=== PATIENT | female | born 1955 | race Caucasian/White ===

== ENCOUNTER 2019-04-28 14:15 | Outpatient (CLI) | payer BC ==
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
== END 2019-04-28 14:16 | disposition home or self-care (01) ==
LOC: DI 14:15
PROVIDERS: ATTEND Internal Medicine
DX: S93.334A Other dislocation of right foot, initial encounter (principal); R22.41 Localized swelling, mass and lump, right lower limb

== ENCOUNTER 2019-05-20 14:06 | Outpatient (CLI) | payer BC ==
--- NOTE | 2019-05-21 09:35 | CT Report ---
Reason: RT TOE SPRAIN Procedure Date: 05/20/2019 Accession Number: [id number] / [id number] Procedure: CT - LOWER EXTREMITY WO - RT CPT Code: Final Report FULL RESULT: EXAM: RIGHT FOOT CT WITHOUT CONTRAST EXAM DATE: 05/20/2019 03:08 PM. CLINICAL HISTORY: Dorsal midfoot pain after fall one month ago. COMPARISON: FOOT 3 VIEW RT 04/28/2019 2:34 PM. TECHNIQUE: Thin-section axial images were acquired of the foot without contrast. Post-processing: Coronal and sagittal reformats. Other: None. In accordance with CT protocol optimization, one or more of the following dose reduction techniques were utilized for this exam: automated exposure control, adjustment of mA and/or KV based on patient size, or use of iterative reconstructive technique. FINDINGS: No acute fracture or bone lesions. Tiny plantar calcaneal enthesophyte. Mild talonavicular joint osteoarthritis. Mild to moderate third TMT joint osteoarthritis. Mild fourth and fifth TMT joint osteoarthritis. Mild first MTP joint osteoarthritis. Moderate to severe osteoarthritis between the medial sesamoid and the first metatarsal. No subluxations. Musculature: Normal. No fatty atrophy. Other: No tendon entrapment. Subcutaneous tissues are unremarkable. IMPRESSION: 1. No acute fracture or dislocation. 2. 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 [facility]
== END 2019-05-20 14:07 | disposition home or self-care (01) ==
LOC: DI 14:06
PROVIDERS: ATTEND Internal Medicine
DX: M19.071 Primary osteoarthritis, right ankle and foot (principal)